=== PATIENT | male | born 1985 | race Two or more races ===

== ENCOUNTER 2021-08-27 15:33 | Inpatient (IN) | payer OTHER ==
[~2021-08-27] VITALS: Ht 180.3 cm; Wt 81.6 kg
[2021-08-27] MEDS ORDERED: HUMULIN R100 UNIT/1 (15:43)
[2021-08-27] MEDS ORDERED: HUMULIN N100 UNIT/2 (15:43)
[2021-08-27] MEDS ORDERED: ULTRAM50 MG (15:44)
[2021-08-27] MEDS ORDERED: ABILIFY5 MG (15:44)
[2021-08-27] MEDS ORDERED: NEURONTIN600 M1 (15:44)
[2021-08-27] MEDS ORDERED: LIPITOR40 M1 (15:44)
[2021-08-27] MEDS ORDERED: TAMS0.4C (15:44)
[2021-08-27] MEDS ORDERED: ELABIL (15:45)
[2021-08-27] MEDS ORDERED: SYMBALTA (15:45)
[2021-09-04] MEDS ORDERED: BETHANECHOL CHL25 MG PO (12:21)
[2021-09-04] MEDS ORDERED: NeuRONTin 400MG CAPS PO (12:21)
[2021-09-04] MEDS ORDERED: TAMS0.4C PO (12:21)
[2021-09-04] MEDS ORDERED: CYMBALTA60 MG PO (12:22)
[2021-09-04] MEDS ORDERED: MORGIDOX100 MG PO (12:26)
[2021-09-04] MEDS ORDERED: CLINDAMYCIN PHO30 GM TOP (12:26)
== END 2021-09-04 14:56 | disposition home or self-care (01) | DRG 394 ==
LOC: ER 15:33 → SURH 20:27
PROVIDERS: ADMIT Surgery; ATTEND Surgery
PROC: 0DBM8ZX Excision of Descending Colon, Via Natural or Artificial Opening Endoscopic, Diagnostic (ICD-10-PCS; principal; 2021-08-30)
PROC: 0DBL8ZX Excision of Transverse Colon, Via Natural or Artificial Opening Endoscopic, Diagnostic (ICD-10-PCS; 2021-08-30)
PROC: 0DBN8ZX Excision of Sigmoid Colon, Via Natural or Artificial Opening Endoscopic, Diagnostic (ICD-10-PCS; 2021-08-30)
PROC: 0DBP8ZX Excision of Rectum, Via Natural or Artificial Opening Endoscopic, Diagnostic (ICD-10-PCS; 2021-08-30)
DX: K60.5 Anorectal fistula (principal); K51.313 Ulcerative (chronic) rectosigmoiditis with fistula; Z16.12 Extended spectrum beta lactamase (ESBL) resistance; B95.62 Methicillin resistant Staphylococcus aureus infection as the cause of diseases classified elsewhere; E11.43 Type 2 diabetes mellitus with diabetic autonomic (poly)neuropathy; K31.84 Gastroparesis; E11.65 Type 2 diabetes mellitus with hyperglycemia; L73.2 Hidradenitis suppurativa; K52.9 Noninfective gastroenteritis and colitis, unspecified; K60.3 Anal fistula; D64.9 Anemia, unspecified; E11.21 Type 2 diabetes mellitus with diabetic nephropathy; E11.319 Type 2 diabetes mellitus with unspecified diabetic retinopathy without macular edema; E78.00 Pure hypercholesterolemia, unspecified; Z93.3 Colostomy status; Z79.4 Long term (current) use of insulin; R33.9 Retention of urine, unspecified; B96.20 Unspecified Escherichia coli [E. coli] as the cause of diseases classified elsewhere

== ENCOUNTER 2024-05-08 07:31 | Day surgery (SDC) | payer OTHER ==
[~2024-05-08] VITALS: Ht 180.3 cm; Wt 99.8 kg
[~2024-05-08 07:31] MED LIST: ABILIFY5 MG; BELBUCA150 MCG BC; BETHANECHOL CHL25 MG PO; CLARITIN5 MG PO; CLINDAMYCIN PHO30 GM TOP; CYMBALTA60 MG PO; ELABIL; HUMULIN N100 UNIT/2; HUMULIN R100 UNIT/1; LIPITOR40 M1; MORGIDOX100 MG PO; NEURONTIN600 M1; NeuRONTin 400MG CAPS PO; PEPCID40 MG PO; REGLAN5 MG/5 ML PO; SYMBALTA; TAMS0.4C; TAMS0.4C PO; ULTRAM50 MG
[2024-05-08] MEDS ORDERED: INSULIN REGULAR, HUMAN 1,000 UNIT/10 ML UNITS IV ONE ×2 (10:00→11:00)
[2024-05-08] MEDS ORDERED: POVIDONE-IODINE 118 ML BOTT TOP ONE (10:28)
[2024-05-08] MEDS ORDERED: BUPIVACAINE HCL/Mpf 0.5% 10ML VIAL ONE (10:28)
[2024-05-08] MEDS ORDERED: METRONIDAZOLE/SODIUM CHLORIDE 500 MG/100 ML PIGGYBACK IV ONE (10:29)
[2024-05-08] MEDS ORDERED: CEFTRIAXONE SODIUM 2,000 MG VIAL ONE (10:29)
[2024-05-08] MEDS ORDERED: LIDOCAINE HCL 1%/EPINEPHRINE 20ML VIAL IJ ONE (10:29)
[2024-05-08] MEDS ORDERED: HEMOSTATIC MATRIX 1 KIT KIT TOP ONE (11:45)
[2024-05-08] MEDS ORDERED: DIBUCAINE 30 GM TUBE ONE (12:04)
[2024-05-08] MEDS ORDERED: DEXTROSE 50 % IN WATER 0.5 G/ML DISP.SYRIN IV PRN (12:15)
[2024-05-08] MEDS ORDERED: INSULIN LISPRO 1,000 UNIT/10 ML UNITS SUBCUTANEO PRN (12:15)
[2024-05-08] MEDS ORDERED: NEURONTIN300 MG PO (13:29)
[2024-05-08] MEDS ORDERED: CELECOXIB200 MG PO (13:29)
[2024-05-08] MEDS ORDERED: CIPRO500 MG PO (13:32)
[2024-05-08] MEDS ORDERED: METRONIDAZOLE500 MG PO (13:32)
[2024-05-08] MEDS ORDERED: HIBICLENS118 ML TOP (13:32)
[2024-05-08] MEDS ORDERED: KETOROLAC TROMETHAMINE 30 MG VIAL ONE (15:40)
[2024-05-08] MEDS ORDERED: MEPERIDINE HCL/PF 50 MG/ML VIAL IV STA (16:41)
[2024-05-08] MEDS ORDERED: KETOROLAC TROMETHAMINE 30 MG VIAL IV STA (16:41)
== END 2024-05-08 16:55 | disposition home or self-care (01) ==
LOC: CIR.AMB 07:31
PROVIDERS: ATTEND Surgery
DX: K60.3 Anal fistula (principal); K61.1 Rectal abscess; L73.2 Hidradenitis suppurativa; E11.21 Type 2 diabetes mellitus with diabetic nephropathy; Z93.3 Colostomy status; Z88.1 Allergy status to other antibiotic agents; Z91.013 Allergy to seafood

== ENCOUNTER 2024-07-30 09:00 | Inpatient (IN) | payer OTHER ==
[~2024-07-30] VITALS: Ht 180.3 cm; Wt 100.7 kg
[~2024-07-30 09:00] MED LIST changes: +CELECOXIB200 MG PO; +CIPRO500 MG PO; +HIBICLENS118 ML TOP; +METRONIDAZOLE500 MG PO; +NEURONTIN300 MG PO
[2024-07-30 13:46] LABS: HEMATOCRIT 37.3 % (39.0-48.0); HEMOGLOBIN 12.5 g/dL (13-16.00); MEAN CELL VOLUME 81.7 fL (80.0-100.00); MEAN CORPUSCULAR HEMOGLOBIN 27.4 pg (27.00-32.0); MEAN CORPUSCULAR HGB CONC 33.5 g/dl (32.0-36.0); PLATELET COUNT 288 K/uL (150-450); RED BLOOD COUNT 4.56 M/uL (4.00-6.00); RED CELL DISTRIBUTION WIDTH 13.5 % (11.5-14.5)
[2024-07-30 13:47] LABS: PH,URINE 5.5 (5.0-8.0); URINE APPEARANCE Cloudy; URINE BILIRRUBIN Small (NEGATIVE); URINE BLOOD Negative; URINE COLOR Dark Yellow; URINE GLUCOSE Negative (NEGATIVE); URINE KETONE Trace (NEGATIVE); URINE LEUKOCYTE Trace; URINE NITRATE Negative
[2024-07-30 13:50] LABS: URINE BACTERIA 47.8 uL (0.0-1933); URINE CAST 18.62 uL (0.0-1.40); URINE EPITHELIAL CELLS 75.2 uL (0.0-38.8); URINE RBC 11.1 uL (0.0-20.8); URINE WBC 37.2 uL (0.0-23.2)
[2024-07-30 13:56] LABS: URINE PROTEIN 100 (NEGATIVE)
[2024-07-30 13:59] LABS: URINE MUCUS MODERATE
[2024-07-30 14:13] LABS: INR 1.07; PARTIAL THROMBOPLASTIN TIME 32.1 SECONDS (22.0-34.0); PROTHROMBIN TIME 11.6 SECONDS (9.0-11.5)
[2024-07-30 14:28] LABS: ALBUMIN 2.7 gm/dL (3.4-5.0); BILIRUBIN TOTAL 0.64 mg/dL (0.3-1.2); CALCIUM 9.2 mg/dL (8.5-10.1); GFR 83.63; GLOBULINA 5.2 G/DL (2.4-3.5); POTASSIUM 4.4 mEq/L (3.5-5.1); TOTAL PROTEIN 7.9 gm/dL (6.4-8.2)
[2024-08-05] MEDS ORDERED: METRONIDAZOLE/SODIUM CHLORIDE 500 MG/100 ML PIGGYBACK IV ONE (09:45)
[2024-08-05] MEDS ORDERED: CEFTRIAXONE SODIUM 2,000 MG VIAL IV ONE (09:45)
[2024-08-05] MEDS ORDERED: BUPIVACAINE HCL 30 ML VIAL IJ ONE (10:00)
[2024-08-05] MEDS ORDERED: LIDOCAINE HCL 1%/EPINEPHRINE 20ML VIAL IJ ONE (10:00)
[2024-08-05] MEDS ORDERED: SUGAMMADEX SODIUM 200 MG/2 ML VIAL IV ONE (13:30)
[2024-08-05] MEDS ORDERED: THROMBIN,HU/FIBRINOGEN/CALCIUM 10 ML SYRINGE TOP ONE (13:30)
[2024-08-05] MEDS ORDERED: ONDANSETRON HCL 2 MG/ML VIAL IV PRN (14:00)
[2024-08-05] MEDS ORDERED: RINGERS SOLUTION,LACTATED 1,000 ML IV SCH (14:00)
[2024-08-05] MEDS ORDERED: ACETAMINOPHEN 500 MG GEL..CAP PO SCH (14:00)
[2024-08-05] MEDS ORDERED: OxyCODONE HCL 5 MG TABLET (ROXICODONE) PO PRN (14:00)
[2024-08-05] MEDS ORDERED: INSULIN LISPRO 1,000 UNIT/10 ML UNITS SUBCUTANEO PRN (14:00)
[2024-08-05] MEDS ORDERED: MORPHINE SULFATE 4 MG/ML CARTRIDGE IV PRN (14:00)
[2024-08-05] MEDS ORDERED: DEXTROSE 50 % IN WATER 0.5 G/ML DISP.SYRIN IV PRN (14:00)
[2024-08-05] MEDS ORDERED: MORPHINE SULFATE 4 MG/ML VIAL IV ONE ×8 (14:30→17:00)
[2024-08-05] MEDS ORDERED: ONDANSETRON HCL 2 MG/ML VIAL IV ONE (14:40)
[2024-08-05] MEDS ORDERED: DEXAMETHASONE SODIUM PHOSP/PF 10 MG/ML VIAL IJ ONE (15:15)
[2024-08-05] MEDS ORDERED: METOCLOPRAMIDE HCL 5 MG/ML VIAL IV ONE ×2 (15:15)
[2024-08-05] MEDS ORDERED: PROMETHAZINE HCL 50 MG/ML AMPUL IM ONE (15:30)
[2024-08-05 15:42] LABS: HEMATOCRIT 31.5 % (39.0-48.0); HEMOGLOBIN 10.6 g/dL (13-16.00); MEAN CELL VOLUME 80.2 fL (80.0-100.00); MEAN CORPUSCULAR HEMOGLOBIN 26.9 pg (27.00-32.0); MEAN CORPUSCULAR HGB CONC 33.5 g/dl (32.0-36.0); PLATELET COUNT 237 K/uL (150-450); RED BLOOD COUNT 3.93 M/uL (4.00-6.00)
[2024-08-05] MEDS ORDERED: POLYETHYLENE GLYCOL 3350 17 GM BLIST.PACK PO SCH (17:00)
[2024-08-05] MEDS ORDERED: GABAPENTIN 300 MG CAPSULE PO SCH (17:00)
[2024-08-05] MEDS ORDERED: HYOSCYAMINE SULFATE 0.125 MG TAB.SUBL SL SCH (17:00)
[2024-08-05] MEDS ORDERED: METOCLOPRAMIDE HCL 5 MG/ML VIAL IV SCH (17:00)
[2024-08-05] MEDS ORDERED: INSULIN NPH HUMAN ISOPHANE 1,000 UNITS/10 ML UNITS SUBCUTANEO ONE (17:40)
[2024-08-05] MEDS ORDERED: hydrALAZINE HCL 20 MG VIAL IV NR (18:00)
[2024-08-05] MEDS ORDERED: CIPROFLOXACIN IN 5 % DEXTROSE 200 MG/100 ML PIGGYBAG IV SCH (18:47)
[2024-08-05] MEDS ORDERED: FAMOTIDINE/PF 20 MG/2 ML VIAL IV PUSH SCH (21:00)
[2024-08-05] MEDS ORDERED: CELECOXIB 200 MG CAPSULE PO SCH (21:00)
[2024-08-05 22:33] VITALS: BP 193/100; O2SAT 100
[2024-08-05] MEDS ORDERED: NITROGLYCERIN IN 5 % DEXTROSE 250 ML IV SCH (22:45)
[2024-08-05] MEDS ORDERED: ENALAPRILAT DIHYDRATE 1.25 MG/ML VIAL IV PRN (22:45)
[2024-08-05 23:09] VITALS: BP 173/97; O2SAT 100
[2024-08-06] VITALS (23 sets, daily range): BP systolic 116–168; BP diastolic 63–99; O2SAT 13–100
[2024-08-06] MEDS ORDERED: METRONIDAZOLE/SODIUM CHLORIDE 100 ML IV SCH (01:00)
[2024-08-06 06:32] LABS: HEMATOCRIT 27.5 % (39.0-48.0); HEMOGLOBIN 9.5 g/dL (13-16.00); MEAN CELL VOLUME 79.4 fL (80.0-100.00); MEAN CORPUSCULAR HEMOGLOBIN 27.6 pg (27.00-32.0); MEAN CORPUSCULAR HGB CONC 34.7 g/dl (32.0-36.0); PLATELET COUNT 250 K/uL (150-450); RED BLOOD COUNT 3.46 M/uL (4.00-6.00); RED CELL DISTRIBUTION WIDTH 13.3 % (11.5-14.5)
[2024-08-06 07:16] LABS: ALBUMIN 1.8 gm/dL (3.4-5.0); CALCIUM 7.9 mg/dL (8.5-10.1); CREATININE SERUM 0.83 mg/dL (0.70-1.30); GFR 103.69; MAGNESIUM 1.8 mg/dL (1.8-2.4); PHOSPHOROUS 2.7 mg/dL (2.5-4.9); POTASSIUM 3.66 mEq/L (3.5-5.1)
[2024-08-06] MEDS ORDERED: LACTULOSE 20 G/30 ML BLIST.PACK PO SCH (09:00)
[2024-08-06] MEDS ORDERED: LACTOBACILLUS ACIDOPHILUS 1 CAP CAP PO SCH (09:00)
[2024-08-06] MEDS ORDERED: CIPROFLOXACIN IN 5 % DEXTROSE 400 MG/200 ML PIGGYBAG IV SCH (09:00)
[2024-08-06] MEDS ORDERED: LOSARTAN POTASSIUM 25 MG TABLET PO SCH (09:00)
[2024-08-06] MEDS ORDERED: MEPERIDINE HCL/PF 50 MG/ML VIAL IV PRN (10:30)
[2024-08-06] MEDS ORDERED: PIPERACILLIN/TAZOBACTAM SODIUM 3.375 GM VIAL IV SCH (12:00)
[2024-08-06] MEDS ORDERED: DEXTROSE 50 % IN WATER 0.5 G/ML DISP.SYRIN IV PRN (14:45)
[2024-08-06] MEDS ORDERED: INSULIN LISPRO 1,000 UNIT/10 ML UNITS SUBCUTANEO PRN (14:45)
[2024-08-06] MEDS ORDERED: ENOXAPARIN SODIUM 40 MG/0.4 ML SYRINGE SUBCUTANEO SCH (17:00)
[2024-08-06] MEDS ORDERED: FOLIC ACID 1 MG TABLET PO SCH (17:00)
[2024-08-06] MEDS ORDERED: TAMSULOSIN HCL 0.4 MG CAP PO SCH (17:00)
[2024-08-06] MEDS ORDERED: Cyanocobalamin/Mecobalamin 1 TAB.SL SL SCH (17:00)
[2024-08-06] MEDS ORDERED: SOD FERRIC GLUC COMPLX/SUCROSE 62.5 MG in 0.9 % SODIUM CHLORIDE 50 ML IV SCH (17:00)
[2024-08-06] MEDS ORDERED: KETOROLAC TROMETHAMINE 30 MG VIAL IV SCH (21:00)
[2024-08-07] VITALS (24 sets, daily range): BP systolic 116–175; BP diastolic 59–99; O2SAT 98–100
[2024-08-07] MEDS ORDERED: ENOXAPARIN SODIUM 40 MG/0.4 ML SYRINGE SUBCUTANEO SCH (09:00)
[2024-08-07] MEDS ORDERED: LOSARTAN POTASSIUM 25 MG TABLET PO NR (15:45)
[2024-08-07] MEDS ORDERED: AMLODIPINE BESYLATE 5 MG TABLET PO SCH ×2 (23:00)
[2024-08-08] VITALS (13 sets, daily range): BP systolic 128–171; BP diastolic 72–963; O2SAT 99–100
[2024-08-08] MEDS ORDERED: LOSARTAN POTASSIUM 50 MG TABLET PO SCH (09:00)
[2024-08-08] MEDS ORDERED: LOSARTAN POTASSIUM 25 MG TABLET PO SCH (09:00)
[2024-08-08] MEDS ORDERED: OxyCODONE HCL 5 MG TABLET (ROXICODONE) PO ONE (12:15)
[2024-08-08] MEDS ORDERED: INSULIN GLARGINE,HUM.REC.ANLOG 1,000 UNITS/10 ML UNITS SUBCUTANEO STA (14:14)
[2024-08-08] MEDS ORDERED: INSULIN REGULAR, HUMAN 1,000 UNIT/10 ML UNITS IV STA (14:16)
[2024-08-08] MEDS ORDERED: INSULIN LISPRO 1,000 UNIT/10 ML UNITS SUBCUTANEO SCH (17:00)
[2024-08-08] MEDS ORDERED: MORPHINE SULFATE 4 MG/ML CARTRIDGE IV PRN (17:15)
[2024-08-09 01:25] VITALS: BP 144/83; O2SAT 96
[2024-08-09 07:18] LABS: HEMATOCRIT 27.4 % (39.0-48.0); HEMOGLOBIN 9.6 g/dL (13-16.00); MEAN CELL VOLUME 78.7 fL (80.0-100.00); MEAN CORPUSCULAR HEMOGLOBIN 27.5 pg (27.00-32.0); PLATELET COUNT 252 K/uL (150-450); RED BLOOD COUNT 3.48 M/uL (4.00-6.00); RED CELL DISTRIBUTION WIDTH 13.2 % (11.5-14.5)
[2024-08-09 07:48] LABS: CALCIUM 7.7 mg/dL (8.5-10.1); CREATININE SERUM 0.5 mg/dL (0.70-1.30); GFR 186.09; POTASSIUM 3.53 mEq/L (3.5-5.1)
[2024-08-09] MEDS ORDERED: OxyCODONE HCL 5 MG TABLET (ROXICODONE) PO PRN (08:00)
[2024-08-09] MEDS ORDERED: POTASSIUM PHOS,M-BASIC-D-BASIC 3 MM/ML VIAL IV NR (08:50)
[2024-08-09] MEDS ORDERED: LOSARTAN POTASSIUM 100 MG TABLET PO SCH (09:00)
[2024-08-09] MEDS ORDERED: INSULIN GLARGINE,HUM.REC.ANLOG 1,000 UNITS/10 ML UNITS SUBCUTANEO SCH (09:00)
[2024-08-09 10:03] VITALS: BP 140/74; O2SAT 96
[2024-08-09 17:00] VITALS: BP 154/94; O2SAT 95
[2024-08-09] MEDS ORDERED: INSULIN GLARGINE,HUM.REC.ANLOG 1,000 UNITS/10 ML UNITS SUBCUTANEO STA (21:27)
[2024-08-10 00:48] VITALS: BP 163/79; O2SAT 98
[2024-08-10 08:00] VITALS: BP 113/73; O2SAT 97
[2024-08-10] MEDS ORDERED: INSULIN LISPRO 1,000 UNIT/10 ML UNITS SUBCUTANEO SCH ×2 (08:00→13:00)
[2024-08-10] MEDS ORDERED: POTASSIUM PHOS,M-BASIC-D-BASIC 15 MM in 0.9 % SODIUM CHLORIDE 250 ML IV NR (10:44)
[2024-08-10] MEDS ORDERED: INSULIN GLARGINE,HUM.REC.ANLOG 1,000 UNITS/10 ML UNITS SUBCUTANEO SCH ×2 (17:00→21:00)
[2024-08-10] MEDS ORDERED: MORPHINE SULFATE 4 MG/ML CARTRIDGE IV PRN (18:30)
[2024-08-10 23:50] VITALS: BP 122/84; O2SAT 99
[2024-08-11 09:54] VITALS: BP 166/92; O2SAT 98
[2024-08-11 16:29] VITALS: BP 149/72; O2SAT 97
[2024-08-11 23:54] VITALS: BP 125/58; O2SAT 98
[2024-08-12 06:37] LABS: ALBUMIN 1.5 gm/dL (3.4-5.0); BILIRUBIN TOTAL 0.15 mg/dL (0.3-1.2); CALCIUM 7.7 mg/dL (8.5-10.1); CREATININE SERUM 0.57 mg/dL (0.70-1.30); GFR 159.98; GLOBULINA 3.6 G/DL (2.4-3.5); POTASSIUM 3.32 mEq/L (3.5-5.1); TOTAL PROTEIN 5.1 gm/dL (6.4-8.2)
[2024-08-12 06:46] LABS: HEMATOCRIT 24.5 % (39.0-48.0); MEAN CELL VOLUME 79.5 fL (80.0-100.00); MEAN CORPUSCULAR HGB CONC 34.8 g/dl (32.0-36.0); PLATELET COUNT 272 K/uL (150-450); RED BLOOD COUNT 3.08 M/uL (4.00-6.00); RED CELL DISTRIBUTION WIDTH 12.9 % (11.5-14.5)
[2024-08-12 06:58] LABS: MEAN CORPUSCULAR HEMOGLOBIN 27.5 pg (27.00-32.0)
[2024-08-12 06:59] LABS: HEMOGLOBIN 8.5 g/dL (13-16.00)
[2024-08-12 08:29] VITALS: BP 136/82; O2SAT 100
[2024-08-12] MEDS ORDERED: POTASSIUM CHLORIDE 20MEQ/100ML H2O PB IV NR (10:02)
[2024-08-12] MEDS ORDERED: PANTOPRAZOLE SODIUM 40 MG/VIAL VIAL IV STA (10:22)
[2024-08-12 11:23] LABS: HEMATOCRIT 27.1 % (39.0-48.0); HEMOGLOBIN 9.5 g/dL (13-16.00); MEAN CELL VOLUME 78.7 fL (80.0-100.00); MEAN CORPUSCULAR HEMOGLOBIN 27.4 pg (27.00-32.0); MEAN CORPUSCULAR HGB CONC 34.9 g/dl (32.0-36.0); PLATELET COUNT 323 K/uL (150-450); RED BLOOD COUNT 3.45 M/uL (4.00-6.00); RED CELL DISTRIBUTION WIDTH 13.2 % (11.5-14.5)
[2024-08-12] MEDS ORDERED: Cyanocobalamin/Mecobalamin 1 TAB.SL SL SCH (12:00)
[2024-08-12] MEDS ORDERED: SOD FERRIC GLUC COMPLX/SUCROSE 62.5 MG in 0.9 % SODIUM CHLORIDE 50 ML IV SCH (12:00)
[2024-08-12] MEDS ORDERED: PERCOCET 5-3251 EACH PO (12:45)
[2024-08-12] MEDS ORDERED: INTEGRA F CAPS1 EACH PO (12:46)
[2024-08-12] MEDS ORDERED: INTESTINEX680 M1 PO (12:46)
[2024-08-12] MEDS ORDERED: GABAPENTIN 100 MG CAPSULE PO SCH (17:00)
[2024-08-12] MEDS ORDERED: GABAPENTIN 300 MG CAPSULE PO SCH (21:00)
[2024-08-13] MEDS ORDERED: PANTOPRAZOLE SODIUM 40 MG/VIAL VIAL IV SCH (06:00)
== END 2024-08-12 14:20 | disposition home or self-care (01) | DRG 330 ==
LOC: ICU 08-05 05:25 → O/R 08-05 05:25 → SURH 08-05 07:00 → ICU 08-05 21:27 → SURG 08-08 19:18
PROVIDERS: Internal Medicine Geriatric Medicine; Specialist; ADMIT Surgery; ATTEND Surgery
PROC: 0DTP4ZZ Resection of Rectum, Percutaneous Endoscopic Approach (ICD-10-PCS; 2024-08-05)
PROC: 0DTN4ZZ Resection of Sigmoid Colon, Percutaneous Endoscopic Approach (ICD-10-PCS; 2024-08-05)
PROC: 0DBQ4ZZ Excision of Anus, Percutaneous Endoscopic Approach (ICD-10-PCS; 2024-08-05)
PROC: 07BC4ZZ Excision of Pelvis Lymphatic, Percutaneous Endoscopic Approach (ICD-10-PCS; 2024-08-05)
PROC: 0DBL4ZZ Excision of Transverse Colon, Percutaneous Endoscopic Approach (ICD-10-PCS; 2024-08-05)
PROC: 05H633Z Insertion of Infusion Device into Left Subclavian Vein, Percutaneous Approach (ICD-10-PCS; 2024-08-05)
PROC: 0D1N4Z4 Bypass Sigmoid Colon to Cutaneous, Percutaneous Endoscopic Approach (ICD-10-PCS; principal; 2024-08-05 07:00)
DX: K57.32 Diverticulitis of large intestine without perforation or abscess without bleeding (principal); K94.09 Other complications of colostomy; K60.5 Anorectal fistula; L73.2 Hidradenitis suppurativa; L92.8 Other granulomatous disorders of the skin and subcutaneous tissue

== ENCOUNTER 2024-08-14 04:21 | Inpatient (IN) | payer OTHER ==
[~2024-08-14] VITALS: Ht 180.3 cm; Wt 99.8 kg
[~2024-08-14 04:21] MED LIST changes: +INTEGRA F CAPS1 EACH PO; +INTESTINEX680 M1 PO; +PERCOCET 5-3251 EACH PO
[2024-08-14] MEDS ORDERED: MEPERIDINE HCL/PF 50 MG/ML VIAL IM STA (04:28)
[2024-08-14] MEDS ORDERED: RINGERS SOLUTION,LACTATED 1,000 ML IV ONE (04:30)
[2024-08-14 05:31] LABS: HEMATOCRIT 27.6 % (39.0-48.0); HEMOGLOBIN 9.4 g/dL (13-16.00); MEAN CELL VOLUME 79.8 fL (80.0-100.00); MEAN CORPUSCULAR HEMOGLOBIN 27.2 pg (27.00-32.0); MEAN CORPUSCULAR HGB CONC 34.1 g/dl (32.0-36.0); PLATELET COUNT 390 K/uL (150-450); RED BLOOD COUNT 3.46 M/uL (4.00-6.00); RED CELL DISTRIBUTION WIDTH 13.8 % (11.5-14.5)
[2024-08-14 05:46] LABS: INR 1.09; PARTIAL THROMBOPLASTIN TIME 34.2 SECONDS (22.0-34.0); PROTHROMBIN TIME 11.8 SECONDS (9.0-11.5)
[2024-08-14] MEDS ORDERED: PIPERACILLIN/TAZOBACTAM SODIUM 3.375 GM in 0.9 % SODIUM CHLORIDE 100 ML IV SCH ×2 (06:00→12:00)
[2024-08-14] MEDS ORDERED: MEPERIDINE HCL/PF 50 MG/ML VIAL IV ONE (06:00)
[2024-08-14] MEDS ORDERED: MORPHINE SULFATE 4 MG/ML VIAL IV PRN (06:45)
[2024-08-14] MEDS ORDERED: RINGERS SOLUTION,LACTATED 1,000 ML IV SCH (06:45)
[2024-08-14] MEDS ORDERED: ONDANSETRON HCL 2 MG/ML VIAL IV PRN (06:45)
[2024-08-14 06:56] LABS: ALBUMIN 1.9 gm/dL (3.4-5.0); BILIRUBIN TOTAL 0.37 mg/dL (0.3-1.2); CALCIUM 8.3 mg/dL (8.5-10.1); CREATININE SERUM 0.55 mg/dL (0.70-1.30); GFR 166.71; GLOBULINA 4.3 G/DL (2.4-3.5); POTASSIUM 3.88 mEq/L (3.5-5.1); TOTAL PROTEIN 6.2 gm/dL (6.4-8.2)
[2024-08-14 07:39] VITALS: BP 158/88; O2SAT 98
[2024-08-14] MEDS ORDERED: ACETAMINOPHEN 500 MG GEL..CAP PO SCH (08:00)
[2024-08-14] MEDS ORDERED: ACETAMINOPHEN 325 MG TABLET PO SCH (08:00)
[2024-08-14] MEDS ORDERED: METOCLOPRAMIDE HCL 5 MG/ML VIAL IV SCH (09:00)
[2024-08-14] MEDS ORDERED: LOSARTAN POTASSIUM 100 MG TABLET PO SCH (09:00)
[2024-08-14] MEDS ORDERED: GABAPENTIN 300 MG CAPSULE PO SCH (09:00)
[2024-08-14] MEDS ORDERED: FAMOTIDINE/PF 20 MG/2 ML VIAL IV SCH (09:00)
[2024-08-14] MEDS ORDERED: Cyanocobalamin/Mecobalamin 1 TAB.SL SL NR (13:50)
[2024-08-14] MEDS ORDERED: ENALAPRILAT DIHYDRATE 1.25 MG/ML VIAL IV PRN (15:15)
[2024-08-14] MEDS ORDERED: DEXTROSE 50 % IN WATER 0.5 G/ML DISP.SYRIN IV PRN (15:15)
[2024-08-14] MEDS ORDERED: LACTOBACILLUS ACIDOPHILUS 1 CAP CAP PO SCH (17:00)
[2024-08-14] MEDS ORDERED: SOD FERRIC GLUC COMPLX/SUCROSE 62.5 MG in 0.9 % SODIUM CHLORIDE 50 ML IV SCH (17:00)
[2024-08-14] MEDS ORDERED: AMINO ACIDS 1 EACH TABLET PO SCH (17:00)
[2024-08-14 17:09] VITALS: BP 124/74; O2SAT 97
[2024-08-15 01:27] VITALS: BP 119/68; O2SAT 98
[2024-08-15 08:00] VITALS: BP 165/91; O2SAT 100
[2024-08-15 08:30] LABS: HEMATOCRIT 26.6 % (39.0-48.0); HEMOGLOBIN 9.1 g/dL (13-16.00); MEAN CORPUSCULAR HEMOGLOBIN 27.8 pg (27.00-32.0); MEAN CORPUSCULAR HGB CONC 34.4 g/dl (32.0-36.0); PLATELET COUNT 412 K/uL (150-450); RED BLOOD COUNT 3.28 M/uL (4.00-6.00); RED CELL DISTRIBUTION WIDTH 13.7 % (11.5-14.5)
[2024-08-15 08:44] LABS: ALBUMIN 1.8 gm/dL (3.4-5.0); CALCIUM 8.2 mg/dL (8.5-10.1); CREATININE SERUM 0.58 mg/dL (0.70-1.30); GFR 156.8; PHOSPHOROUS 3.4 mg/dL (2.5-4.9); POTASSIUM 3.55 mEq/L (3.5-5.1)
[2024-08-15] MEDS ORDERED: Cyanocobalamin/Mecobalamin 1 TAB.SL SL SCH (09:00)
[2024-08-15 13:52] VITALS: BP 143/81; O2SAT 99
[2024-08-15] MEDS ORDERED: MORPHINE SULFATE 4 MG/ML CARTRIDGE IV PRN (14:30)
[2024-08-15 16:00] VITALS: BP 148/88; O2SAT 98
[2024-08-15] MEDS ORDERED: ENOXAPARIN SODIUM 40 MG/0.4 ML SYRINGE SUBCUTANEO SCH (17:00)
[2024-08-16 01:45] VITALS: BP 143/87; O2SAT 100
[2024-08-16 08:00] VITALS: BP 142/89; O2SAT 99
[2024-08-16 16:00] VITALS: BP 165/100; O2SAT 100
[2024-08-16] MEDS ORDERED: METOCLOPRAMIDE HCL 10 MG TABLET PO SCH (17:00)
[2024-08-16 19:00] VITALS: BP 165/100; O2SAT 96
[2024-08-16] MEDS ORDERED: AMLODIPINE BESYLATE 5 MG TABLET PO SCH (21:00)
[2024-08-16] MEDS ORDERED: FAMOtidine 20 MG TABLET PO SCH (21:00)
[2024-08-16 21:30] VITALS: BP 165/100
[2024-08-17 00:59] VITALS: BP 129/75; O2SAT 100
[2024-08-17] MEDS ORDERED: MORPHINE SULFATE 4 MG/ML CARTRIDGE IV PRN (02:15)
[2024-08-17 08:00] VITALS: BP 160/90; O2SAT 97
== END 2024-08-17 13:57 | disposition home or self-care (01) | DRG 948 ==
LOC: ER 04:21 → SURH 07:53
PROVIDERS: General Practice; ADMIT Surgery; ATTEND Surgery
PROC: 02HV33Z Insertion of Infusion Device into Superior Vena Cava, Percutaneous Approach (ICD-10-PCS; principal; 2024-08-14)
DX: R18.8 Other ascites (principal); I10 Essential (primary) hypertension; E11.9 Type 2 diabetes mellitus without complications; Z79.4 Long term (current) use of insulin